=== PATIENT | female | born 1990 | race Caucasian/White ===

== ENCOUNTER 2021-03-06 03:21 | Emergency (ER) | payer BC ==
[2021-03-06 04:59] LABS: HEMOGLOBIN 13.5 gm/dl (12.3-15.3); RED BLOOD COUNT 4.43 M/UL (4.00-5.10); WHITE BLOOD COUNT 5.2 K/UL (4.5-11.0)
[2021-03-06 05:19] LABS: BUN/CREATININE RATIO 11 (0-10)
[2021-03-08 13:09] LABS: CHLAMYDIA TRACHOMATIS, NAA Negative (Negative); NEISSERIA GONORRHOEAE, NAA Negative (Negative)
== END 2021-03-06 12:45 | disposition home or self-care (01) ==
LOC: ER1 03:21
PROVIDERS: Physician Assistant; Preventive Medicine Occupational Medicine
DX: U07.1 COVID-19 (principal); N83.9 Noninflammatory disorder of ovary, fallopian tube and broad ligament, unspecified
CPT/HCPCS: 76830; 80053; 81001; 83605; 83690; 84703; 85025; 85652; 86140; 86850; 86900; 86901; 87086; 87210; 96374; 96375; 99284; J1170; J2270; J2405; Q9967; U0002